=== PATIENT | male | born 1990 | race Caucasian/White ===

== ENCOUNTER 2023-11-21 10:44 | Outpatient (AMB) | payer OTHER, SELFPAY ==
[2023-11-21 12:09] VITALS: BP 144/104; PULSE 76; TEMP 36.8; O2SAT 96; BMI 27.3
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
== END 2023-11-21 12:53 | disposition home or self-care (01) ==
PROVIDERS: Visit Provider Nurse Practitioner Family
DX: S06.0X0A Concussion without loss of consciousness, initial encounter (principal); R51.9 Headache, unspecified; M54.2 Cervicalgia
CPT/HCPCS: 99214